=== PATIENT | male | born 1980 | race Caucasian/White ===

== ENCOUNTER 2018-03-28 04:21 | Emergency (ER) | payer MEDICAID, OTHER ==
[2018-03-28] MEDS ORDERED: SODIUM CHLORIDE 0.9% 1,000 ML IV ONE (04:39)
[2018-03-28] MEDS ORDERED: KETOROLAC 30 MG/ML VIAL IVP STA (04:39)
[2018-03-28] MEDS ORDERED: DEXAMETHASONE 10 MG/ML VIAL IVP STA (04:39)
--- NOTE | 2018-03-28 04:54 | ED Physician Documentation ---
History of Present Illness - Stated complaint Stated Complaint: THROAT PX - Chief complaint Chief Complaint: Heent - History obtained from History obtained from: Patient, Family - History of Present Illness Timing: How many weeks ago (1) Pain level max: 8 Pain level now: 8 Improved by: decadron Worsened by: swallowing - Additonal information Additional information: With a sore throat for the past week. He was seen at [facility] in [place] 2 days ago and given a dose of steroids and placed on Augmentin. States he had blood work at that time as well as a CT scan which did not show any abscess at that point. States he was feeling better yesterday but the swelling seems to have recurred today. He is taking Augmentin at home. Is not currently on any steroids at home. Review of Systems Constitutional: denies: Fever, Chills Ears: denies: Ear pain Nose: denies: Rhinorrhea / runny nose, Congestion Throat: reports: Sore throat Cardiac: denies: Chest pain / pressure Respiratory: denies: Cough GI: denies: Abdominal Pain, Nausea, Vomiting, Diarrhea Skin: denies: Rash Musculoskeletal: denies: Neck pain, Back pain Neurologic: denies: Headache PD PAST MEDICAL HISTORY - Past Medical History Cardiovascular: None Respiratory: None Endocrine/Autoimmune: None - Present Medications Home Medications: Ambulatory Orders Medication Instructions Recorded Confirmed Amox/Clav 875/125 [Augmentin 1 tab PO BID 03/28/18 03/28/18 875/125] Hydromorphone HCl [Dilaudid] 4 mg 03/28/18 predniSONE [Deltasone] 10 mg PO [id number] #42 tab 03/28/18 - Allergies Allergies/Adverse Reactions: Allergies Allergy/AdvReac Type Severity Reaction Status Date / Time Sulfa (Sulfonamide Allergy Intermediate Edema Verified 03/28/18 04:35 Antibiotics) minocycline Allergy Edema Verified 03/28/18 04:35 - Social History Does the pt smoke?: Yes Smoking Status: Current every day smoker - Immunizations Immunizations: TDAP current <10years PD ED PE NORMAL - Vitals Vital signs reviewed: Yes - General General: Alert and oriented X 3, No acute distress - HEENT HEENT: Moist mucous membranes, Other (Muffled phonation. Mild trismus. Uvula m idline. Tonsillar swelling bilaterally) - Neck Neck: Supple, no meningeal sign, Other (Shotty anterior lymphadenopathy) - Cardiac Cardiac: RRR, Strong equal pulses - Respiratory Respiratory: No respiratory distress, Clear bilaterally - Abdomen Abdomen: Soft, Non tender, Non distended - Derm Derm: Warm and dry - Extremities Extremities: No tenderness to palpate - Neuro Neuro: Alert and oriented X 3 Results - Vitals Vitals: Vital Signs - 24 hr 03/28/18 03/28/18 03/28/18 04:25 05:24 05:36 Temperature 36.3 C L 98.3 C H Heart Rate 104 H 90 89 Respiratory 18 18 16 Rate Blood Pressure 150/111 H 151/100 H 147/89 H O2 Saturation 97 95 95 03/28/18 06:09 Temperature 36.8 C Heart Rate 88 Respiratory 16 Rate Blood Pressure 138/86 H O2 Saturation 100 Oxygen O2 Source Room air PD MEDICAL DECISION MAKING - ED course Complexity details: reviewed old records, reviewed results, re-evaluated patient, considered differential, d/w patient, d/w family ED course: Reviewed records from [facility] in [place], no peritonsillar abscess on CT scan from March 26. Given IV fluids, dexamethasone, 20 mg, IV as well as a dose of Unasyn. We will have him continue the Augmentin at home and prescribe a prednisone taper. He was also given Toradol and feels better. Is speaking easier and swallowing without difficulty. We will have him follow-up with the ENT. He will call this morning. Patient and family counseled regarding signs and symptoms for which I believe and urgent re-evaluation would be necessary. Patient with good understanding of and agreement to plan and is comfortable going home at this time This document was made in part using voice recognition software. While efforts are made to proofread this document, sound alike and grammatical errors may occur. Departure - Departure Disposition: Home, Self Care Clinical Impression: Pharyngitis Qualifiers: Pharyngitis/tonsillitis etiology: unspecified etiology Qualified Code(s): J02.9 - Acute pharyngitis, unspecified Condition: Good Instructions: ED Strep Pharyngitis Poss Prescriptions: predniSONE [Deltasone] 10 mg PO [id number] #42 tab Comments: Continue your antibiotics at home. Return if you worsen. Follow-up with ENT as referred by the ER at [facility] for your throat. Discharge Date/Time: 03/28/18 06:10
[2018-03-28] MEDS ORDERED: AMPICILLIN/SULBACTAM 3 GM in SODIUM CHLORIDE 0.9% MINIBAG 100 ML IV STA (05:23)
[2018-03-28 06:10] VITALS: BP 138/86
== END 2018-03-28 06:10 | disposition home or self-care (01) ==
LOC: ED 04:21
DX: J02.9 Acute pharyngitis, unspecified (principal); F17.200 Nicotine dependence, unspecified, uncomplicated
CPT/HCPCS: 96361; 96365; 96375; 99283; 99284

== ENCOUNTER 2018-05-16 13:28 | Emergency (ER) | payer OTHER ==
[2018-05-16 13:45] VITALS: BP 145/98
--- NOTE | 2018-05-16 15:17 | ED Physician Documentation ---
PD HPI LOWER EXT INJURY - Stated complaint Stated Complaint: L FOOT INJ - Chief complaint Chief Complaint: Ext Problem - History obtained from History obtained from: Patient - History of Present Illness PD HPI LOW EXT INJURY LOCATION: Left, Foot Type of injury: Twist Where injury occurred: Work Timing - onset: How many hours ago (1) Timing - duration: Hours (1) Timing - details: Abrupt onset Pain level max: 5 Pain level now: 5 Improved by: Rest, Ice, Immobilization Worsened by: Moving, Palpating Associated symptoms: No: Weakness, Numbness, Tingling, Swelling Contributing factors: No: Anticoagulated, Prior ortho surgery Recently seen: Not recently seen - Additional information Additional information: L foot pain s/p fall down stairs at work Review of Systems Constitutional: denies: Fever GI: denies: Vomiting Musculoskeletal: denies: Neck pain, Back pain Neurologic: denies: Head injury, LOC PD PAST MEDICAL HISTORY - Past Medical History Cardiovascular: None Respiratory: None Endocrine/Autoimmune: None - Past Surgical History Past Surgical History: Yes - Present Medications Home Medications: Ambulatory Orders Medication Instructions Recorded Confirmed Amox/Clav 875/125 [Augmentin 1 tab PO BID 03/28/18 03/28/18 875/125] Hydromorphone HCl [Dilaudid] 4 mg 03/28/18 predniSONE [Deltasone] 10 mg PO [id number] #42 tab 03/28/18 Hydrocodone/Acetaminophen 1 - 2 each PO Q6H PRN #14 tablet 05/16/18 [Hydrocodon-Acetaminophen 5-325] - Allergies Allergies/Adverse Reactions: Allergies Allergy/AdvReac Type Severity Reaction Status Date / Time Sulfa (Sulfonamide Allergy Intermediate Edema Verified 05/16/18 13:45 Antibiotics) minocycline Allergy Edema Verified 05/16/18 13:45 - Social History Does the pt smoke?: Yes Smoking Status: Current every day smoker Does the pt drink ETOH?: No Does the pt have substance abuse?: No - Immunizations Immunizations are current?: Yes Immunizations: TDAP current <10years - POLST Patient has POLST: No PD ED PE NORMAL - Vitals Vital signs reviewed: Yes - General General: Alert and oriented X 3, No acute distress - Derm Derm: Warm and dry - Extremities Extremities: Other (Left foot and ankle - Tenderness to palpation over the dorsum of the foot. No swelling. Neurovascular intact. No skin changes. Normal ankle examination. Neurovascularly intact no other tenderness over the foot) - Neuro Neuro: Alert and oriented X 3 Results - Vitals Vitals: Vital Signs - 24 hr 05/16/18 13:32 Temperature 36.2 C L Heart Rate 90 Respiratory 16 Rate Blood Pressure 145/98 H O2 Saturation 98 Oxygen O2 Source Room air - Rads (name of study) Left foot x-ray Radiology: Prelim report reviewed, EMP read contemporaneously, See rad report (No acute abnormality) PD MEDICAL DECISION MAKING - ED course Complexity details: reviewed results, re-evaluated patient, considered differential, d/w patient ED course: 38-year-old male presents to the emergency department with a left foot sprain. No acute findings on x-ray. Will utilize crutches as needed at home. L and I paperwork filled out. Patient counseled regarding signs and symptoms for which I believe and urgent re-evaluation would be necessary. Patient with good understanding of and agreement to plan and is comfortable going home at this time This document was made in part using voice recognition software. While efforts are made to proofread this document, sound alike and grammatical errors may occur. Departure - Departure Disposition: Home, Self Care Clinical Impression: Sprain of foot, left Qualifiers: Encounter type: initial encounter Qualified Code(s): S93.602A - Unspecified sprain of left foot, initial encounter Condition: Good Instructions: ED Sprain Foot Follow-Up: Jeimy Simon PA-C [Primary Care Provider] - Within 1 week Prescriptions: Hydrocodone/Acetaminophen [Hydrocodon-Acetaminophen 5-325] 1 - 2 each PO Q6H PRN #14 tablet PRN Reason: pain Comments: You may bear weight as tolerated. Return if you worsen. Your x-rays are normal today. Do not drink alcohol or drive while on narcotic pain medicine. Note that many narcotic pain relievers also contain tylenol/acetaminophen. Please ensure that your total dose of acetaminophen from all sources does not exceed 3 grams (3000mg) per day. You may constipated on this medication, take a stool softener such as "Colace" twice a day while you are on it. Also recommend a [id number] laxative such as senna or MiraLAX any day that you do not have a bowel movement. If you received narcotic pain medication in the emergency department, do not drive or operate machinery for the next 24 hours. Forms: Activity restrictions Discharge Date/Time: 05/16/18 16:08
--- NOTE | 2018-05-16 15:34 | XRAY Report ---
Reason: injury Procedure Date: 05/16/2018 Accession Number: [id number] / [id number] Procedure: XR - Foot 3 View LT CPT Code: FULL RESULT: EXAM: LEFT FOOT RADIOGRAPHY EXAM DATE: 05/16/2018 03:23 PM. CLINICAL HISTORY: Injury. COMPARISON: None. TECHNIQUE: 3 views. FINDINGS: Bones: Mild posterior calcaneal spurring. No fractures or bone lesions. Joints: Normal. No subluxations. Soft Tissues: Normal. No soft tissue swelling. IMPRESSION: No fracture or dislocation is identified. RADIA
[2018-05-16] MEDS ORDERED: HYDROcod/ACETAM 5/325 MG TABLET PO STA (15:58)
== END 2018-05-16 16:08 | disposition home or self-care (01) ==
LOC: ED 13:28
DX: S93.602A Unspecified sprain of left foot, initial encounter (principal); W10.9XXA Fall (on) (from) unspecified stairs and steps, initial encounter; X50.1XXA Overexertion from prolonged static or awkward postures, initial encounter; Y99.0 Civilian activity done for income or pay; F17.200 Nicotine dependence, unspecified, uncomplicated
CPT/HCPCS: 1040M; 73630; 99283; A9270

== ENCOUNTER 2018-12-09 14:26 | Emergency (ER) | payer SELFPAY ==
[2018-12-09 14:44] VITALS: BP 156/103
--- NOTE | 2018-12-09 15:36 | ED Physician Documentation ---
PD HPI SKIN - Stated complaint Stated Complaint: ABSCESS ON NECK/L HIP PX - Chief complaint Chief Complaint: General - History obtained from History obtained from: Patient - History of Present Illness Timing - onset: How many days ago (few) Timing - duration: Days (few) Timing - details: Gradual onset, Still present Location: Neck (back of neck - he has had many cysts on back of neck, with I&D and has had some surgical resection of some cysts/scar tissue, but they are recurrent. He says he has not had MRSA in the past. Often not infected even.) Quality / character: Painful, Swelling. No: Draining Associated symptoms: No: Fever, Myalgias, Headache, N/V/D Similar symptoms before: Diagnosis (sebaceous cysts on neck) Review of Systems Constitutional: denies: Fever, Chills, Myalgias Nose: denies: Rhinorrhea / runny nose, Congestion Throat: denies: Sore throat Respiratory: denies: Cough GI: denies: Nausea, Vomiting, Diarrhea PD PAST MEDICAL HISTORY - Past Medical History Cardiovascular: None Respiratory: None Endocrine/Autoimmune: None - Past Surgical History Past Surgical History: Yes - Present Medications Home Medications: Ambulatory Orders Medication Instructions Recorded Confirmed Amox/Clav 875/125 [Augmentin 1 tab PO BID 03/28/18 03/28/18 875/125] Hydromorphone HCl [Dilaudid] 4 mg 03/28/18 RX: predniSONE [Deltasone] 10 mg PO [id number] #42 tab 03/28/18 Hydrocodone/Acetaminophen 1 - 2 each PO Q6H PRN #14 tablet 05/16/18 [Hydrocodon-Acetaminophen 5-325] Hydrocodone/Acetaminophen [[place] 1 each PO Q6H PRN #15 tablet 12/09/18 5-325 Tablet] RX: Clindamycin HCl [Clindamycin 300 mg PO Q6H #28 capsule 12/09/18 300MG CAP] RX: Naproxen 500 mg PO BID #20 tablet 12/09/18 - Allergies Allergies/Adverse Reactions: Allergies Allergy/AdvReac Type Severity Reaction Status Date / Time Sulfa (Sulfonamide Allergy Intermediate Edema Verified 12/09/18 14:44 Antibiotics) codeine Allergy Unknown Verified 12/10/18 07:35 minocycline Allergy Edema Verified 12/09/18 14:44 - Social History Does the pt smoke?: Yes Smoking Status: Current every day smoker Does the pt drink ETOH?: No Does the pt have substance abuse?: No - Immunizations Immunizations are current?: Yes Immunizations: TDAP current <10years - POLST Patient has POLST: No PD ED PE NORMAL - Vitals Vital signs reviewed: Yes - General General: Alert and oriented X 3, No acute distress, Well developed/nourished - Neck Neck: Supple, no meningeal sign, No adenopathy, Other (Back of the neck with old scar tissue consistent with prior cysts. There is current 2-1/2 cm diameter rounded protrusion which is fluctuant and has overlying redness. There is some sub-cutaneous induration as well. There is localized tenderness. There is no drainage.) - Cardiac Cardiac: RRR, No murmur - Respiratory Respiratory: Clear bilaterally Results - Vitals Vitals: Vital Signs - 24 hr 12/09/18 14:42 Temperature 36.9 C Heart Rate 88 Respiratory 20 Rate Blood Pressure 156/103 H O2 Saturation 98 Oxygen O2 Source Room air - Labs Labs: Microbiology 12/09/18 16:16 Wound Culture - Preliminary Cyst Procedures - Abscess I&D (location) back of neck Preparation: Lidocaine 1%, With epi Incision: Incised with scalpel, Purulent drainage, Irrigated, Culture obtained. No: Packed Other: Pt tolerated well, Antibiotic prescribed (The drainage was discolored, cloudy/purulent and odorous consistent with infection and not just fluid.) PD MEDICAL DECISION MAKING - ED course Complexity details: considered differential (Infected cyst on the back of the neck. It does seem infected by purulence and odor so we will go with antibiotics. He is allergic to sulfa and minocycline so chose clindamycin for now pending cultures.), d/w patient Departure - Departure Disposition: 01 Home, Self Care Clinical Impression: Neck abscess, Trochanteric bursitis of left hip Condition: Stable Record reviewed to determine appropriate education?: Yes Instructions: ED Abscess IandD, ED Bursitis Follow-Up: Jeimy Simon PA-C [Primary Care Provider] - Prescriptions: RX: Clindamycin HCl [Clindamycin 300MG CAP] 300 mg PO Q6H #28 capsule Hydrocodone/Acetaminophen [[place] 5-325 Tablet] 1 each PO Q6H PRN #15 tablet PRN Reason: Pain RX: Naproxen 500 mg PO BID #20 tablet Comments: Cleanse the area 2-3 times a day and also consider warm moist towels to the area to help promote blood flow and improve drainage. Naproxen anti-inflammatory twice daily for pains and the bursitis. Add Tylenol or hydrocodone if needed for pain. Clindamycin antibiotic as directed. We did a culture from the drainage and will call you if we need to change the antibiotic based on that. Will result in about 2 days. Discharge Date/Time: 12/09/18 16:33
[2018-12-09] MEDS ORDERED: IBUPROFEN 600 MG TABLET PO STA (16:02)
[2018-12-09] MEDS ORDERED: HYDROcod/ACETAM 5/325 MG TABLET PO STA (16:02)
[2018-12-09] MEDS ORDERED: CLINDAMYCIN 150 MG CAPSULE PO STA (16:19)
== END 2018-12-09 16:33 | disposition home or self-care (01) ==
LOC: ED 14:26
DX: L02.11 Cutaneous abscess of neck (principal); M70.62 Trochanteric bursitis, left hip; Z88.2 Allergy status to sulfonamides; Z88.1 Allergy status to other antibiotic agents; F17.200 Nicotine dependence, unspecified, uncomplicated
CPT/HCPCS: 10060; 87070; 87205; 99283; A9270